=== PATIENT | male | born 1990 | race Caucasian/White ===

== ENCOUNTER 2017-09-15 21:56 | Emergency (ER) | payer MEDICAID ==
[~2017-09-15 21:56] MED LIST: DOCU-28 PO; SENN25TA27 PO; TRAM50TA2 PO
== END 2017-09-16 00:54 | disposition left against medical advice (07) ==
LOC: ER 21:57
DX: M25.579 Pain in unspecified ankle and joints of unspecified foot (principal); Z53.21 Procedure and treatment not carried out due to patient leaving prior to being seen by health care provider